=== PATIENT | female | born 1990 | race African-American/Black ===

== ENCOUNTER 2019-03-06 15:14 | Emergency (ER) | payer MEDICAID ==
[2019-03-06 16:14] LABS: #Basophils 0.1 thou/uL (0.0-0.2); #Eosinphils 0.3 thou/uL (0.0-0.7); #Lymphocytes 3.6 thou/uL (1.20-3.40); #Monocytes 0.7 thou/uL (0.11-0.59); #Neutrophils 4.4 thou/uL (1.40-6.50); %Basophils 1.4 % (0.0-1.0); %Eosinophils 3.4 % (0.0-10.0); %Lymphocytes 39.1 % (21.0-51.0); %Monocytes 7.3 % (0.0-10.0); %Neutrophils 48.8 % (42.0-75.0); Hemoglobin 13.2 g/dL (12.0-16.0); Mean Corpuscular HGB CONC 34.5 g/dL (32.0-36.0); Mean Corpuscular Hemoglobin 31.8 pg (27.0-31.0); Mean Corpuscular Volume 92.1 fL (78.0-98.0); Mean Platelet Volume 7.2 fL (7.4-10.4); Platelet Count 353 thou/uL (130-400); Red Blood Cell (RBC) Count 4.16 mill/uL (4.20-5.40); White Blood Cell (WBC) Count 9.1 thou/uL (4.8-10.8)
--- NOTE | 2019-03-06 16:32 | RAD ---
AP view chest. HISTORY: Chest pain. AP view chest is obtained. The lungs are well aerated. No evidence of active intrathoracic disease se en. No evidence of effusions, pneumonia or pneumothorax seen. IMPRESSION: Unremarkable AP view chest.
[2019-03-06] MEDS ORDERED: Ketorolac Tromethamine 30 MG/ML VIAL ONE (16:34)
[2019-03-06 16:38] LABS: ALT (SGPT) 18 U/L (8-55); AST (SGOT) 15 U/L (5-34); Albumin 4.1 g/dL (3.5-5.0); Alkaline Phosphatase 70 U/L (40-150); Anion Gap 13 mmol/L (10-20); BUN (Urea Nitrogen) 8 mg/dL (7.0-18.7); Bilirubin, Total 0.3 mg/dL (0.2-1.2); Calc. Creatinine Clearance 0 mL/min (70-130); Calcium 9.4 mg/dL (7.8-10.44); Carbon Dioxide 21 mmol/L (22-29); Chloride 109 mmol/L (98-107); Estimated GFR-MDRD Greater than 90; Globulin 2.5 g/dL (2.4-3.5); Glucose 105 mg/dL (70-105); Protein, Total 6.6 g/dL (6.0-8.3); Sodium 139 mmol/L (136-145)
== END 2019-03-06 17:00 | disposition home or self-care (01) ==
LOC: ERS 15:14
DX: J45.909 Unspecified asthma, uncomplicated (principal); G56.02 Carpal tunnel syndrome, left upper limb; F17.210 Nicotine dependence, cigarettes, uncomplicated
CPT/HCPCS: 36415; 71045; 80053; 84484; 85025; 93005; 96374; J1885

== ENCOUNTER 2019-04-11 13:57 | Emergency (ER) | payer MEDICAID, OTHER | END 2019-04-11 14:54 | disposition home or self-care (01) | LOC: ERS 13:57 | DX: O21.9 Vomiting of pregnancy, unspecified (principal); O99.511 Diseases of the respiratory system complicating pregnancy, first trimester; J45.909 Unspecified asthma, uncomplicated; O99.331 Smoking (tobacco) complicating pregnancy, first trimester; F17.210 Nicotine dependence, cigarettes, uncomplicated; Z3A.01 Less than 8 weeks gestation of pregnancy | CPT/HCPCS: 99281 ==

== ENCOUNTER 2019-05-28 13:15 | Emergency (ER) | payer OTHER ==
[2019-05-28 13:40] LABS: #Basophils 0.2 thou/uL (0.0-0.2); #Eosinphils 0.2 thou/uL (0.0-0.7); #Lymphocytes 3.3 thou/uL (1.20-3.40); #Monocytes 0.9 thou/uL (0.11-0.59); #Neutrophils 6.4 thou/uL (1.40-6.50); %Basophils 1.5 % (0.0-1.0); %Eosinophils 2.1 % (0.0-10.0); %Lymphocytes 29.9 % (21.0-51.0); %Monocytes 8.1 % (0.0-10.0); %Neutrophils 58.5 % (42.0-75.0); Bilirubin Small (Negative); Blood, Urine Negative (Negative); Glucose, Urine (Dipstick) Negative (Negative); Leukocyte Negative (Negative); Mean Corpuscular Hemoglobin 29.6 pg (27.0-31.0); Mean Corpuscular Volume 92.6 fL (78.0-98.0); Mean Platelet Volume 6.7 fL (7.4-10.4); Nitrite Negative (Negative); Platelet Count 419 thou/uL (130-400); Protein, Urine (Dipstick) 30 mg/dL (Neg-Trace); RBC Distribution Width 12.7 % (11.5-14.5); Red Blood Cell (RBC) Count 4.72 mill/uL (4.20-5.40); White Blood Cell (WBC) Count 10.9 thou/uL (4.8-10.8)
[2019-05-28 13:41] LABS: Clarity Slightly Cloudy (Clear)
[2019-05-28 13:44] LABS: Bacteria/HPF 1+ HPF (None Seen); RBC/HPF 0-3 HPF (0-3); WBC/HPF 0-3 HPF (0-3)
--- NOTE | 2019-05-28 14:46 | ULT ---
TRANSVAGINAL PELVIC ULTRASOUND WITH GRAYSCALE AND COLORFLOW AND SPECTRAL DOPPLER IMAGING: HISTORY: Pelvic pain. Positive test. Beta hCG is 14,307 FINDINGS: The uterus measures 10.2 x 5.9 x 5.3 cm. The right ovary measures 3.6 x 2.4 x 2.4 cm, and the left o vary measures 2.4 x 2 x 2.1 cm. Flow is demonstrated to the left ovary. No free fluid is seen in th e cul-de-sac. A single intrauterine gestation is seen with measurements corresponding to an estimated gestational a ge of 6 weeks 1 day and an NORTH of 01/11/2020. The crown-rump length measures 0.26 cm. Gestational s ac diameter is 1.41 cm. Yolk sac diameter is 0.34 cm. No subchorionic hemorrhage is seen. No heart tones are demonstrated. IMPRESSION: Single intrauterine of 6 weeks 1 day estimated gestational age. No heart tones are s een. Correlation with serial serum beta hCGs and follow-up ultrasound is recommended. POS: [facility]
[2019-06-01 00:53] LABS: Chlamydia by PCR Not Detected (NotDetected); GC by PCR Not Detected (NotDetected)
== END 2019-05-28 15:16 | disposition home or self-care (01) ==
LOC: SCSER 13:15
DX: O99.89 Other specified diseases and conditions complicating pregnancy, childbirth and the puerperium (principal); R10.31 Right lower quadrant pain; R10.32 Left lower quadrant pain; O99.511 Diseases of the respiratory system complicating pregnancy, first trimester; J45.909 Unspecified asthma, uncomplicated; O99.331 Smoking (tobacco) complicating pregnancy, first trimester; F17.210 Nicotine dependence, cigarettes, uncomplicated; Z79.51 Long term (current) use of inhaled steroids; Z3A.01 Less than 8 weeks gestation of pregnancy
CPT/HCPCS: 76856; 81003; 81015; 84702; 85025; 87480; 87491; 87510; 87591; 87660

== ENCOUNTER 2019-06-17 14:16 | Emergency (ER) | payer OTHER ==
[2019-06-17] MEDS ORDERED: Acetaminophen 500 MG TAB ONE (14:59)
[2019-06-17 15:07] LABS: #Basophils 0.1 thou/uL (0.0-0.2); #Eosinphils 0.2 thou/uL (0.0-0.7); #Lymphocytes 2.6 thou/uL (1.20-3.40); #Monocytes 0.4 thou/uL (0.11-0.59); #Neutrophils 7.3 thou/uL (1.40-6.50); %Basophils 1.1 % (0.0-1.0); %Eosinophils 1.9 % (0.0-10.0); %Lymphocytes 24.4 % (21.0-51.0); %Monocytes 3.7 % (0.0-10.0); %Neutrophils 68.9 % (42.0-75.0); Hemoglobin 12.8 g/dL (12.0-16.0); Mean Corpuscular Hemoglobin 30.1 pg (27.0-31.0); Mean Corpuscular Volume 91.1 fL (78.0-98.0); Mean Platelet Volume 6.4 fL (7.4-10.4); Platelet Count 383 thou/uL (130-400); RBC Distribution Width 12.5 % (11.5-14.5); Red Blood Cell (RBC) Count 4.27 mill/uL (4.20-5.40); White Blood Cell (WBC) Count 10.6 thou/uL (4.8-10.8)
[2019-06-17 15:20] LABS: Acetaminophen Less than 6.0 mcg/mL (10.0-30.0); Alcohol Less than 10 mg/dL (Less than 10); Salicylate Less than 8.0 mg/dL (15.0-30.0)
[2019-06-17 15:23] LABS: ALT (SGPT) 11 U/L (8-55); AST (SGOT) 11 U/L (5-34); Alkaline Phosphatase 54 U/L (40-150); Anion Gap 15 mmol/L (10-20); BUN (Urea Nitrogen) 4 mg/dL (7.0-18.7); Bilirubin, Total 0.3 mg/dL (0.2-1.2); CK (CPK) 62 U/L (29-168); Calc. Creatinine Clearance 0 mL/min (70-130); Calcium 9.5 mg/dL (7.8-10.44); Carbon Dioxide 21 mmol/L (22-29); Chloride 105 mmol/L (98-107); Estimated GFR-MDRD Greater than 90; Globulin 3.1 g/dL (2.4-3.5); Glucose 89 mg/dL (70-105); Potassium 3.8 mmol/L (3.5-5.1); Protein, Total 7.1 g/dL (6.0-8.3); Sodium 137 mmol/L (136-145)
--- NOTE | 2019-06-17 15:30 | CT ---
CT BRAIN WITHOUT CONTRAST: HISTORY: Headache FINDINGS: No evidence of acute infarct, hemorrhage, midline shift or abnormal extra-axial fluid collections is seen. The ventricular size is appropriate and the basilar cisterns are patent. The bony calvarium is intact. The visualized paranasal sinuses and mastoid air cells are well aerated. IMPRESSION: No CT evidence of acute intracranial process.
[2019-06-17 15:36] LABS: Amphetamine Not Detected (NotDetected); Barbiturates Screen Not Detected (NotDetected); Benzodiazepine Screen Not Detected (NotDetected); Cocaine Metabolite Screen Not Detected (NotDetected); Medtox Control Line Valid? VALID (VALID); Methadone Not Detected (NotDetected); Methamphetamine Not Detected (NotDetected); Opiate Screen Not Detected (NotDetected); Oxycodone Screen Not Detected (NotDetected); Phencyclidine (PCP) Not Detected (NotDetected); THC/Cannabinoid Screen Not Detected (NotDetected); Tricyclic Screen Not Detected (NotDetected)
[2019-06-17 15:44] LABS: Bacteria/HPF 1+ HPF (None Seen); Bilirubin Small (Negative); Blood, Urine Negative (Negative); Clarity Hazy (Clear); Glucose, Urine (Dipstick) Negative (Negative); Leukocyte Negative (Negative); Nitrite Negative (Negative); Protein, Urine (Dipstick) 30 mg/dL (Neg-Trace); RBC/HPF None Seen HPF (0-3); WBC/HPF None Seen HPF (0-3)
[2019-06-17 15:47] LABS: Lipase Less than 4 U/L (8-78)
--- NOTE | 2019-06-17 15:49 | ULT ---
TRANSABDOMINAL AND ENDOVAGINAL PELVIC ULTRASOUND WITH VALERIO SCALE, COLOR FLOW AND SPECTRAL DOPPLER LENORE GIN06/17/19 HISTORY: Syncope. No pelvic pain or vaginal bleeding. FINDINGS: The uterus measures 9.4 x 6.9 x 8 cm . The right ovary measures 3.2 x 3.5 x 2 cm. The left ovary kojo ures 2.6 x 1.6 x 1.3 cm. Flow is demonstrated to both ovaries. No adnexal mass or free fluid in the c ul-de-sac is seen. A single live intrauterine gestation is seen with measurements corresponding to an estimated gestatio nal age of 8 weeks, 0 days and NORTH at 01/27/2020. The crown-rump length measures 1.3 cm. Gestational s ac diameter 3.11 cm and yolk sac diameter is 0.39 cm. The heart rate measures 180 beats per min ld. No subchorionic hemorrhage is seen. IMPRESSION: Single live IUP of 8 weeks estimated gestational age and NORTH at 01/27/2020. POS: ZACH
== END 2019-06-17 16:01 | disposition home or self-care (01) ==
LOC: SCSER 14:16
DX: O99.89 Other specified diseases and conditions complicating pregnancy, childbirth and the puerperium (principal); R55 Syncope and collapse; O99.511 Diseases of the respiratory system complicating pregnancy, first trimester; J45.909 Unspecified asthma, uncomplicated; Z3A.09 9 weeks gestation of pregnancy
CPT/HCPCS: 70450; 76856; 80053; 80306; 80307; 81003; 81015; 82550; 83690; 84484; 85025; 93005; 93976; 96360

== ENCOUNTER 2019-08-16 08:42 | Day surgery (SDC) | payer OTHER ==
[2019-08-15 10:03] VITALS: BMI 41.3
[2019-08-16] MEDS ORDERED: Doxycycline 100 MG CAP PO SCH (09:45)
[2019-08-16 10:11] LABS: Hemoglobin 12.1 g/dL (12.0-16.0); Mean Corpuscular HGB CONC 32.8 g/dL (32.0-36.0); Mean Corpuscular Hemoglobin 29.8 pg (27.0-31.0); Mean Corpuscular Volume 90.9 fL (78.0-98.0); Mean Platelet Volume 7.2 fL (7.4-10.4); Platelet Count 350 thou/uL (130-400); Red Blood Cell (RBC) Count 4.05 mill/uL (4.20-5.40); White Blood Cell (WBC) Count 11.9 thou/uL (4.8-10.8)
[2019-08-16] MEDS ORDERED: Fentanyl 100 MCG/2 ML VIAL ONE ×2 (10:41→11:43)
[2019-08-16] MEDS ORDERED: Midazolam HCl 2 mg/2 ml Vial ONE (10:41)
[2019-08-16] MEDS ORDERED: Famotidine/PF 20 mg/2ml Vial ONE (10:44)
[2019-08-16] MEDS ORDERED: Oxytocin 10 UNITS/ML VIAL ONE (10:51)
[2019-08-16] MEDS ORDERED: Methylergonovine 0.2 MG/ML VIAL ONE (10:51)
[2019-08-16] MEDS ORDERED: Misoprostol 200 MCG TAB ONE ×2 (10:51→10:54)
--- NOTE | 2019-08-16 12:16 | OP ---
DATE OF PROCEDURE: 08/16/2019 PREOPERATIVE DIAGNOSIS: A 12-week 4-day missed . POSTOPERATIVE DIAGNOSIS: A 12-week 4-day missed . PROCEDURES PERFORMED: Suction dilation and curettage. SURGEON: Pao Anne DO EBL: Approximately 150 mL. COMPLICATIONS: None. ANESTHESIA: General. INDICATIONS FOR PROCEDURE: Ms. Navin Pulliam is a 28-year-old, G4, P2, who was diagnosed with a missed . The fetus was measuring approximately 12 weeks. The patient was counseled on dilation and curettage, was recommended for management. DESCRIPTION OF PROCEDURE: The patient was brought to the operating room. She was placed under general anesthesia and placed in dorsal lithotomy position. She was prepped and draped in a sterile fashion. An official time-out was performed. The single-sided speculum was placed in the vagina. The anterior aspect of the cervix was grasped using single-tooth tenaculum and the cervix was sequentially dilated. The uterus was sounded to approximately 10 cm. The 10 mm suction curettage was inserted and rotated circumferentially removing the products of conception. Several rounds were required to remove the products of conception as well as the ring forceps required to remove. A sharp curettage was then performed in circumferential fashion noting gritty texture. One last suction curettage pass was performed. Everything was then removed from the vagina. The tenaculum site was hemostatic. The patient was placed back in supine position, extubated without difficulty. All counts were correct x2. Job ID: [id number] [id number]
[2019-08-16] MEDS ORDERED: Lidocaine 1% PF 5 ML VIAL ONE (13:12)
[2019-08-16] MEDS ORDERED: Dexamethasone 20 MG/5 ML VIAL ONE (13:12)
[2019-08-16] MEDS ORDERED: Ketorolac Tromethamine 30 MG/ML VIAL ONE (13:12)
[2019-08-16] MEDS ORDERED: Succinylcholine Chloride 20 MG/ML 10 ml SYRINGE FS ONE (13:12)
[2019-08-16] MEDS ORDERED: Metoclopramide HCl 10 MG/2 ML VIAL ONE (13:12)
[2019-08-16] MEDS ORDERED: PROPOFOL 200 MG/20 ML VIAL ONE (13:12)
[2019-08-16] MEDS ORDERED: Ondansetron PF 4 MG/2 ML Vial ONE (13:12)
[2019-08-16] MEDS ORDERED: HYDROcodone/Acetaminophen 5/325 mg Tablet ONE (14:37)
== END 2019-08-16 15:45 | disposition home or self-care (01) ==
LOC: SDC 08:42
PROVIDERS: ATTEND Obstetrics & Gynecology
PROC: 10D17ZZ Extraction of Products of Conception, Retained, Via Natural or Artificial Opening (ICD-10-PCS; principal; 2019-08-16)
DX: O02.1 Missed abortion (principal); J45.909 Unspecified asthma, uncomplicated; Z87.891 Personal history of nicotine dependence; Z79.82 Long term (current) use of aspirin; Z79.899 Other long term (current) drug therapy
CPT/HCPCS: 36415; 85027; 86850; 86900; 86901; 88305; J0131; J1100; J1885; J2001; J2210; J2250; J2405; J2590; J2704; J2765; J3010; S0028